=== PATIENT | female | born 1960 | race Asian ===

== ENCOUNTER 2019-04-22 17:55 | Emergency (ER) | payer MEDICAID ==
[~2019-04-22] VITALS: Ht 154.9 cm; Wt 69.9 kg
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
--- NOTE | 2019-04-22 18:10 | NUR ---
PLACED IN SOFT C-COLLAR
[2019-04-22] MEDS ORDERED: DIAZEPAM 10 MG TABLET PO ONE (18:30)
[2019-04-22] MEDS ORDERED: KETOROLAC TROMETHAMINE INJ 60 MG/2 ML VIAL IM ONE (18:30)
[2019-04-22] MEDS ORDERED: KETOROLAC TROMETHAMINE INJ 30 MG/ML VIAL ONE (18:46)
[2019-04-22] MEDS ORDERED: DIAZEPAM 5 MG TABLET ONE (18:46)
--- NOTE | 2019-04-22 18:54 | NUR ---
PT IN RADIOLOGY
--- NOTE | 2019-04-22 19:19 | NUR ---
PT RECEIVED FRON NANCY VAZQUEZ FOR IVY. PT IN BED AAOX4. NAD NOTED. TALKING TO FAMILY AT BEDSIDE
--- NOTE | 2019-04-22 19:57 | NUR ---
Patient discharged to home in stable condition. Written and verbal after care instructions given. Patient verbalizes understanding of instruction. Pt ambulatory with a steady gait
[2019-04-22 19:58] VITALS: BP 147/73
--- NOTE | 2019-04-22 19:58 | NUR ---
CERVICAL COLLAR DC'D, SCANS ARE CLEAR
== END 2019-04-22 19:59 | disposition home or self-care (01) ==
LOC: ER 17:58
DX: S16.1XXA Strain of muscle, fascia and tendon at neck level, initial encounter (principal); S20.212A Contusion of left front wall of thorax, initial encounter; S20.211A Contusion of right front wall of thorax, initial encounter; R42 Dizziness and giddiness; V49.49XA Driver injured in collision with other motor vehicles in traffic accident, initial encounter; Y93.89 Activity, other specified; Y92.488 Other paved roadways as the place of occurrence of the external cause; Y99.8 Other external cause status
CPT/HCPCS: 71045; 72125; 96372; 99284; J1885